=== PATIENT | male | born 1980 | race Caucasian/White ===

== ENCOUNTER 2023-09-11 02:21 | Inpatient (IN) | payer OTHER, SELFPAY ==
--- NOTE | 2023-09-11 | ECG_ITS ---
Test Reason : CHECK FOR PROLONGED QT Blood Pressure : / mmHG Vent. Rate : 063 BPM Atrial Rate : 063 BPM P-R Int : 136 ms QRS Dur : 092 ms QT Int : 412 ms P-R-T Axes : 045 056 067 degrees QTc Int : 421 ms Normal sinus rhythm Normal ECG No previous ECGs available Referred By: Chester Mccallum Electronically Signed By:Raudel Taylor
[2023-09-11 02:33] VITALS: BP 161/113; PULSE 126; RESP 18; TEMP 36.2; O2SAT 98; BMI 20.7
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
[2023-09-11 04:06] LABS: Appearance Urine Clear; Color Urine Dark Yellow; Glucose Urine UA Negative (Negative); Leukocyte Esterase Urine Negative (Negative); Nitrite Urine Negative (Negative); PH 5.5 (5.0-9.0); Specific Gravity - Urine >= 1.030 (1.005-1.025); UMIC TRIGGER UACC YES; Urine Blood Negative (Negative); Urine Ketones Trace mg/dL (Negative); Urine Protein 30 (1+) mg/dL (Neg-Trace)
[2023-09-11 04:11] LABS: Bacteria Urine None Seen (None Seen); Hyaline Casts Urine 0-2 /LPF (0-2); RBC Urine 0-2 /HPF (0-2); Squamous Epithelial Cell Urine 0-2 /HPF (0-2); WBC Urine 0-5 /HPF (0-5)
[2023-09-11 04:20] LABS: Amphetamine Screen Urine Not Detected (Not Detect); Barbiturates, Urine Not Detected (Not Detect); Benzodiazepines Screen Urine Not Detected (Not Detect); Buprenorphine Scr Positive (Not Detect); Cannabinoid Screen Urine Not Detected (Not Detect); Cocaine Screen Urine POSITIVE (Not Detect); Fentanyl, urine POSITIVE (Not Detect); Methadone Screen, Urine Not Detected (Not Detect); Opiate Screen Urine POSITIVE (Not Detect); Oxycodone Screen Urine Not Detected (Not Detect); Phencyclidine Screen Urine Not Detected (Not Detect)
[2023-09-11 04:26] LABS: Alanine Aminotransferase 14 U/L (0-40); Albumin Level 4.1 g/dL (3.5-5.0); Alkaline Phosphatase 70 U/L (39-117); Anion Gap 15 (12-20); Aspartate Amino Transferase 20 U/L (5-37); Bilirubin Total 0.6 mg/dL (0.0-1.0); Blood Urea Nitrogen 12 mg/dL (9-16); Calcium 9.7 mg/dL (8.4-10.2); Carbon Dioxide 24 mmol/L (22-29); Chloride 108 mmol/L (96-108); Creatinine Clr Calc Pharmacy 71.8; Estimated Glomerular Filt Rate > 60; Ethanol < 10 mg/dL; Glucose Random 166 mg/dL (60-115); Potassium 4.6 mmol/L (3.3-5.1); Sodium 142 mmol/L (135-145); Total Protein 8.2 g/dL (6.5-8.0)
--- NOTE | 2023-09-11 07:06 | PC.NURSE ---
Assumed care of patient at 0645. Patient is observed resting in their bed. No signs of distress observed. Will continue plan of care.
[2023-09-11 07:48] LABS: MANUAL DIFF FLAG NO
[2023-09-11 08:13] LABS: Basophils Percent Auto 0.4 % (0-2); Eosinophils Absolute Auto 0.1 X10*3/uL (0.0-0.4); Eosinophils Percent Auto 1.2 % (0-4); Hematocrit 37.2 % (42.0-52.0); Hemoglobin 12.8 g/dl (14.0-18.0); Imm Gran Abs Auto 0.05 X10*3/uL (0.00-0.03); Imm Gran Pct Auto 0.4 % (0.0-0.4); Lymphocytes Absolute Auto 2.5 X10*3/uL (1.2-4.9); Lymphocytes Percent Auto 21.9 % (20-40); Mean Corpuscular HGB Conc 34.4 g/dl (31.0-36.0); Mean Corpuscular Hemoglobin 29.1 pg (27.0-33.0); Mean Corpuscular Volume 84.5 fL (80.0-98.0); Mean Platelet Volume 11.3 fL (9.4-12.4); Monocytes Absolute Auto 0.8 X10*3/uL (0.1-1.2); Monocytes Percent Auto 6.9 % (2-11); Neutrophils Absolute Auto 7.9 x10*3/uL (2.0-8.3); Neutrophils Percent Auto 69.2 % (45-73); Platelet Count 182 X10*3/uL (160-400); Red Cell Distribution Width 13.7 % (11.0-16.0); White Blood Count 11.4 X10*3/uL (4.8-10.8)
[2023-09-11 11:36] VITALS: BP 116/72; PULSE 66; RESP 14; TEMP 36.4; O2SAT 97
[2023-09-12 03:34] VITALS: BP 136/87; PULSE 61; RESP 17; TEMP 36.4; O2SAT 97
--- NOTE | 2023-09-12 05:55 | PC.NURSE ---
Patient slept through the night, no distress observed/reported, no behavior issues, VSS, med rec completed/pending provider's approval, patient was assessed by care team with disposition section 12 inpatient bed search, will continue to monitor
--- NOTE | 2023-09-12 06:58 | PC.NURSE ---
Assumed care of patient at 0645. Patient is observed resting in their bed. No signs of distress observed. Will continue plan of care.
[2023-09-12] MEDS: Sertraline HCL 50 MG TABLET PO (09:54)
[2023-09-12] MEDS: Sertraline HCL 100 MG TABLET PO (09:55)
[2023-09-12] MEDS: QUEtiapine Fumarate 50 MG TABLET PO (10:10)
--- NOTE | 2023-09-12 14:02 | PHA.MEDREC ---
Pharmacy Consult ? Medication Reconciliation Pharmacy has completed the medication reconciliation. Nurse had confirmed it before-hand. Pharmacy went through pharmacy claims and everything matched and looked good from nurses list and PH claims.
[2023-09-12 14:35] VITALS: BP 126/89; PULSE 78; RESP 14; TEMP 37.1; O2SAT 96
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
[2023-09-12 20:00] VITALS: BP 132/88; PULSE 86; RESP 16; TEMP 37.4; O2SAT 99
[2023-09-12] MEDS: Prazosin HCL 1 MG CAPSULE 3 MG PO (20:26)
[2023-09-12] MEDS: hydrOXYzine HCL 50 MG TABLET PO (20:26)
[2023-09-12] MEDS: traZODone HCL 50 MG TABLET 150 MG PO (20:27)
[2023-09-12] MEDS: QUEtiapine Fumarate 300 MG TABLET PO (20:27)
[2023-09-13] VITALS (7 sets, daily range): BP systolic 120–168; BP diastolic 86–89; PULSE 72–101; RESP 16; TEMP 36.6–37.3; O2SAT 96
[2023-09-13] MEDS: Sertraline HCL 100 MG TABLET PO (08:54)
[2023-09-13] MEDS: Sertraline HCL 50 MG TABLET PO (08:54)
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
[2023-09-13] MEDS: Ibuprofen 800 MG TABLET PO (15:29)
[2023-09-13] MEDS: Dicyclomine HCl 10 MG CAPSULE PO (15:29)
[2023-09-13] MEDS: hydrOXYzine HCL 50 MG TABLET PO (15:29)
[2023-09-13] MEDS: cloNIDine HCL 0.1 MG TABLET PO ×2 (15:29→20:19)
[2023-09-13] MEDS: Buprenorphine HCL 8 MG TAB.SUBL SUBLINGUAL (15:30)
[2023-09-13] MEDS: QUEtiapine Fumarate 300 MG TABLET PO (20:18)
[2023-09-13] MEDS: Prazosin HCL 1 MG CAPSULE 3 MG PO (20:18)
[2023-09-13] MEDS: traZODone HCL 50 MG TABLET 150 MG PO (20:19)
[2023-09-14 08:00] VITALS: BP 139/81; PULSE 85; RESP 14; TEMP 36.7; O2SAT 95
[2023-09-14] MEDS: Sertraline HCL 100 MG TABLET PO (08:46)
[2023-09-14] MEDS: Sertraline HCL 50 MG TABLET PO (08:46)
--- NOTE | 2023-09-14 13:36 | P.PNPSI_ITS ---
Subjective Subjective Date of Service: 09/14/23 Reason For Visit: SI Interim History: in bed, minimally interactive. reports feeling better from bupe, wants it to be scheduled, agrees to schedule 8 BID for now. no other requests or complaints, declines further interview. per staff, ambivalent re his safety. taking comfort PRNs. dep 9 anx 6. slept 8 hours. got 8 mg bupe yesterday to good effect. COWS O/N was 1. Mental Status Exam Mental Status Exam Narrative: lying in bed, covered in blanket for the most part. minimally cooperative, saying he did not want to have interview as he was feeling unwell. did discuss mgmt of his opioid withdrawal. no PMA/PMR. speech decreased in rate, loudness, tone, amount. incr latency. thoughts linear and logical. affect constricted, normo-intense, non-labile. mood unknown. no SI/SIBI/HI/AVH expressed, but did express SI to staff services manager. Diagnostics Vital Signs (24Hr): Vital Signs - 24 hr 09/13/23 15:29 09/13/23 20:00 09/13/23 20:10 Temperature 98 F 98.0 F Pulse Rate 72 72 Respiratory Rate 16 16 Blood Pressure 168/89 H 120/86 120/86 Pulse Oximetry 96 96 Oxygen Delivery Method Room Air Room Air 09/13/23 20:18 09/13/23 20:19 Temperature Pulse Rate Respiratory Rate Blood Pressure 120/86 120/86 Pulse Oximetry Oxygen Delivery Method BMI result Body Mass Index 20.7 Labs 09/11/23 08:04 09/11/23 03:58 Medications Medications Current Medications Acetaminophen (Acetaminophen 325 Mg Tablet) 650 mg PO Q6H PRN PRN Reason: Headache/Pain Mild Scale (1-3) Al Hydroxide/Mg Hydroxide (Magnesium Hydrox/Alum Hydrox 30 Ml Oral.Susp) 30 ml PO Q6H PRN PRN Reason: Heartburn/Nausea Buprenorphine HCl (Buprenorphine Hcl 8 Mg Tab.Subl) 8 mg SUBLINGUAL BID VI Clonidine HCl (Clonidine Hcl 0.1 Mg Tablet) 0.1 mg PO Q4H PRN; Protocol PRN Reason: signs of opioid withdrawal Last Admin: 09/13/23 20:19 Dose: 0.1 mg Dicyclomine HCl (Dicyclomine Hcl 10 Mg Capsule) 10 mg PO QIDACHS PRN PRN Reason: stomach spasm Last Admin: 09/13/23 15:29 Dose: 10 mg Hydroxyzine HCl (Hydroxyzine Hcl 50 Mg Tablet) 50 mg PO BID PRN PRN Reason: anxiety Last Admin: 09/13/23 15:29 Dose: 50 mg Ibuprofen (Ibuprofen 800 Mg Tablet) 800 mg PO Q8H PRN PRN Reason: aches Last Admin: 09/13/23 15:29 Dose: 800 mg Loperamide HCl (Loperamide Hcl 2 Mg Capsule) 2 mg PO Q6H PRN PRN Reason: diarrhea Magnesium Hydroxide (Milk Of Magnesia 30 Ml Oral.Susp) 30 ml PO DAILY PRN PRN Reason: Constipation Nicotine Polacrilex (Nicotine Polacrilex 2 Mg Gum) 4 mg BUCCAL Q2H PRN PRN Reason: Nicotine Cravings Ondansetron HCl (Ondansetron Odt 8 Mg Tab.Rapdis) 8 mg TRANSLINGU Q8H PRN PRN Reason: nausea or vomiting Prazosin HCl (Prazosin Hcl 1 Mg Capsule) 3 mg PO BEDTIME VI; Protocol Last Admin: 09/13/23 20:18 Dose: 3 mg Quetiapine Fumarate (Quetiapine Fumarate 300 Mg Tablet) 300 mg PO BEDTIME VI Last Admin: 09/13/23 20:18 Dose: 300 mg Sertraline HCl (Sertraline Hcl 50 Mg Tablet) 50 mg PO DAILY VI Last Admin: 09/14/23 08:46 Dose: 50 mg Sertraline HCl (Sertraline Hcl 100 Mg Tablet) 100 mg PO DAILY VI Last Admin: 09/14/23 08:46 Dose: 100 mg Trazodone HCl (Trazodone Hcl 50 Mg Tablet) 150 mg PO BEDTIME VI Last Admin: 09/13/23 20:19 Dose: 150 mg Allergies Allergies Allergy/AdvReac Type Severity Reaction Status Date / Time naloxone Allergy Anaphylaxis Verified 09/11/23 02:34 Assessment & Plan Assessment & Plan (1) Polysubstance abuse: Status: Acute Code(s): F19.10 - Other psychoactive substance abuse, uncomplicated (2) Suicidal ideation: Status: Acute Code(s): R45.851 - Suicidal ideations Plan 09/12: comfort meds for opioid detox. bupe 8 mg BID PRN COWS 7 or greater. supportive care for cocaine withdrawal. Q5 min checks due to statements of SI/HI. 6/21: dismissive. provocative statements about his safety. agrees to bupe 8 BID. DC COWS and PRN bupe. otherwise continue current mgmt. Reason for continued inpatient stay Substantial Risk for: rapid decompensation Time Spent With Patient Time: Total time managing care of this patient today ____ minutes.
[2023-09-14] MEDS: Buprenorphine HCL 8 MG TAB.SUBL SUBLINGUAL ×2 (14:05→22:32)
[2023-09-14 22:15] VITALS: BP 134/97; PULSE 74; RESP 16; TEMP 37.9; O2SAT 96
[2023-09-14] MEDS: traZODone HCL 50 MG TABLET 150 MG PO (22:30)
[2023-09-14] MEDS: Prazosin HCL 1 MG CAPSULE 3 MG PO (22:31)
[2023-09-14] MEDS: QUEtiapine Fumarate 300 MG TABLET PO (22:32)
[2023-09-15 08:00] VITALS: BP 129/86; PULSE 93; RESP 14; TEMP 36.3; O2SAT 95
--- NOTE | 2023-09-15 08:34 | P.PNPSI_ITS ---
Subjective Subjective Date of Service: 09/15/23 Reason For Visit: SI Subjective Notes: Conditional Voluntary Interim History: 42 yo with slight fever today and not feeling well - non specific- Happy with effect of bup - and being on medications to help dep/anxiety- which are still high co of ongoing si (not on unit) but thoughts- about when he leaves and auditory hallucinations of bad things happening sees shadows- denies hx of trauma- Nursing reports isolated to room taking meds- Medication Compliance: Yes Side effects from medications: No Attending Groups: No Review of Systems Acute medical concerns: Yes slight fever will get resp panel Review of Systems: no specific bodily complaints Mental Status Exam Mental Status Exam Narrative: lying in bed wrapped in blanket Patient Appearance: Fatigued Patient Orientation: Person, Place, Time and Situation Level of Consciousness: Awake Patient Behavior: Guarded, Passive, Resistive to Care and Poor Eye Contact Mood Description: Calm and Apathetic Affect Description: Blunted Patient Cognition Impaired: No Ability to Follow Directions: Fair Speech Pattern: Mumbled Perceptual Disturbances: Hallucinations Thought Process: Intact Thought Content: positive for Goal Oriented Depressive Symptoms: Increased Anxiety, Changes in Appetite, Unhappiness and Thoughts of /Suicide Abnormal Motor Activity Signs and Symptoms: Psychomotor Retardation Judgement: Fair Diagnostics Vital Signs (24Hr): Vital Signs - 24 hr 09/14/23 22:15 09/15/23 08:00 Temperature 100.3 F 97.3 F Pulse Rate 74 93 Respiratory Rate 16 14 Blood Pressure 134/97 H 129/86 Pulse Oximetry 96 95 Oxygen Delivery Method Room Air Room Air BMI result Body Mass Index 20.7 Labs 09/11/23 08:04 09/11/23 03:58 Medications Medications Current Medications Acetaminophen (Acetaminophen 325 Mg Tablet) 650 mg PO Q6H PRN PRN Reason: Headache/Pain Mild Scale (1-3) Al Hydroxide/Mg Hydroxide (Magnesium Hydrox/Alum Hydrox 30 Ml Oral.Susp) 30 ml PO Q6H PRN PRN Reason: Heartburn/Nausea Buprenorphine HCl (Buprenorphine Hcl 8 Mg Tab.Subl) 8 mg SUBLINGUAL BID VI Last Admin: 09/14/23 22:32 Dose: 8 mg Clonidine HCl (Clonidine Hcl 0.1 Mg Tablet) 0.1 mg PO Q4H PRN; Protocol PRN Reason: signs of opioid withdrawal Last Admin: 09/13/23 20:19 Dose: 0.1 mg Dicyclomine HCl (Dicyclomine Hcl 10 Mg Capsule) 10 mg PO QIDACHS PRN PRN Reason: stomach spasm Last Admin: 09/13/23 15:29 Dose: 10 mg Hydroxyzine HCl (Hydroxyzine Hcl 50 Mg Tablet) 50 mg PO BID PRN PRN Reason: anxiety Last Admin: 09/13/23 15:29 Dose: 50 mg Ibuprofen (Ibuprofen 800 Mg Tablet) 800 mg PO Q8H PRN PRN Reason: aches Last Admin: 09/13/23 15:29 Dose: 800 mg Loperamide HCl (Loperamide Hcl 2 Mg Capsule) 2 mg PO Q6H PRN PRN Reason: diarrhea Magnesium Hydroxide (Milk Of Magnesia 30 Ml Oral.Susp) 30 ml PO DAILY PRN PRN Reason: Constipation Nicotine Polacrilex (Nicotine Polacrilex 2 Mg Gum) 4 mg BUCCAL Q2H PRN PRN Reason: Nicotine Cravings Ondansetron HCl (Ondansetron Odt 8 Mg Tab.Rapdis) 8 mg TRANSLINGU Q8H PRN PRN Reason: nausea or vomiting Prazosin HCl (Prazosin Hcl 1 Mg Capsule) 3 mg PO BEDTIME VI; Protocol Last Admin: 09/14/23 22:31 Dose: 3 mg Quetiapine Fumarate (Quetiapine Fumarate 300 Mg Tablet) 300 mg PO BEDTIME VI Last Admin: 09/14/23 22:32 Dose: 300 mg Sertraline HCl (Sertraline Hcl 50 Mg Tablet) 50 mg PO DAILY [facility] Last Admin: 09/14/23 08:46 Dose: 50 mg Sertraline HCl (Sertraline Hcl 100 Mg Tablet) 100 mg PO DAILY [facility] Last Admin: 09/14/23 08:46 Dose: 100 mg Trazodone HCl (Trazodone Hcl 50 Mg Tablet) 150 mg PO BEDTIME VI Last Admin: 09/14/23 22:30 Dose: 150 mg Allergies Allergies Allergy/AdvReac Type Severity Reaction Status Date / Time naloxone Allergy Anaphylaxis Verified 09/11/23 02:34 Assessment & Plan Assessment & Plan (1) Polysubstance abuse: Status: Acute Code(s): F19.10 - Other psychoactive substance abuse, uncomplicated (2) Suicidal ideation: Status: Acute Code(s): R45.851 - Suicidal ideations Plan 09/12: comfort meds for opioid detox. bupe 8 mg BID PRN COWS 7 or greater. supportive care for cocaine withdrawal. Q5 min checks due to statements of SI/HI. 09/13: dismissive. provocative statements about his safety. agrees to bupe 8 BID. DC COWS and PRN bupe. otherwise continue current mgmt. 09/14/-dep/anxious with si and ah, better with opiate withdrawl on sub-CTP Patient educated on: medication risk/benefits and medical condition Informed Consent: understands Reason for continued inpatient stay Substantial Risk for: harm to self and rapid decompensation Time Spent With Patient Time: Total time managing care of this patient today ____ minutes.
[2023-09-15] MEDS: Sertraline HCL 100 MG TABLET PO (08:57)
[2023-09-15] MEDS: Sertraline HCL 50 MG TABLET PO (08:57)
[2023-09-15] MEDS: Buprenorphine HCL 8 MG TAB.SUBL SUBLINGUAL ×2 (08:57→21:17)
[2023-09-15 20:15] VITALS: BP 120/77; PULSE 75; RESP 16; TEMP 36.4; O2SAT 97
[2023-09-15] MEDS: QUEtiapine Fumarate 300 MG TABLET PO (21:17)
[2023-09-15] MEDS: traZODone HCL 50 MG TABLET 150 MG PO (21:17)
[2023-09-15 21:21] VITALS: BP 120/77
[2023-09-15] MEDS: Prazosin HCL 1 MG CAPSULE 3 MG PO (21:21)
[2023-09-16 07:17] LABS: Adenovirus PCR Not Detected (Not Detect.); Bordetella parapertussis PCR Not Detected (Not Detect.); Bordetella pertussis PCR Not Detected (Not Detect.); Chlamydia pneumoniae PCR Not Detected (Not Detect.); Coronavirus 229E PCR Not Detected (Not Detect.); Coronavirus HKU1 PCR Not Detected (Not Detect.); Coronavirus NL63 PCR Not Detected (Not Detect.); Coronavirus OC43 PCR Not Detected (Not Detect.); Human metapneumovirus PCR Not Detected (Not Detect.); Influenza A PCR Not Detected (Not Detect.); Influenza B PCR Not Detected (Not Detect.); Mycoplasma pneumoniae PCR Not Detected (Not Detect.); Parainfluenza 1 PCR Not Detected (Not Detect.); Parainfluenza 2 PCR Not Detected (Not Detect.); Parainfluenza 3 PCR Not Detected (Not Detect.); Parainfluenza 4 PCR Not Detected (Not Detect.); RSV PCR Not Detected (Not Detect.); Rhino/Enterovirus PCR Not Detected (Not Detect.); SARS-CoV-2 PCR Not Detected (Not Detect.)
[2023-09-16 08:00] VITALS: BP 112/78; PULSE 82; TEMP 36.8; O2SAT 94
[2023-09-16] MEDS: Sertraline HCL 50 MG TABLET PO (10:02)
[2023-09-16] MEDS: Sertraline HCL 100 MG TABLET PO (10:02)
[2023-09-16] MEDS: Buprenorphine HCL 8 MG TAB.SUBL SUBLINGUAL ×2 (10:04→20:37)
--- NOTE | 2023-09-16 12:06 | HO.PSYCHPN ---
Subjective Subjective Date of Service: 09/16/23 Reason For Visit: SI Subjective Notes: Conditional Voluntary Interim History: 42 yo male not eating, lying in bed, very depressed, si no current plan here in hospital - very worried about him- AH of his own thoughts telling him to kill himself- on antidep 150 sertraline and seroquel 300mg will push sertraline - but may need change meds or ECT ? add on lithium denies stimulant/cocaine abuse prior to admit. Had been off psych meds but hadn't been not eating prior to admit. Medication Compliance: Yes Side effects from medications: No Attending Groups: No Review of Systems Acute medical concerns: No Medical Review of Systems: unchanged Review of Systems: not pooping but not eating either, is taking fluids and is verbal not catatonic Mental Status Exam Mental Status Exam Narrative: lying in bed Patient Appearance: Appropriate Patient Orientation: Person, Place, Time and Situation Level of Consciousness: Awake Patient Behavior: Cooperative and Passive Mood Description: Blunted and Sad Affect Description: Constricted Patient Cognition Impaired: No Ability to Follow Directions: Fair Hallucinations: Auditory (of self harm) Thought Process: Intact Thought Content: positive for Goal Oriented and positive for Poverty of Content Depressive Symptoms: Muscle Tension, Changes in Appetite, Hopelessness and Loss of Energy Abnormal Motor Activity Signs and Symptoms: Psychomotor Retardation Judgement: Fair Diagnostics Vital Signs (24Hr): Vital Signs - 24 hr 09/15/23 20:15 09/15/23 21:21 Temperature 97.5 F Pulse Rate 75 Respiratory Rate 16 Blood Pressure 120/77 120/77 Pulse Oximetry 97 Oxygen Delivery Method Room Air BMI result Body Mass Index 20.7 Labs 09/11/23 08:04 09/11/23 03:58 Labs: Laboratory Results - last 48 hr 09/15/23 14:37 Respiratory Panel Ryan See Note Adenovirus (Rapid PCR) Not Detected B.pert (TEM-PCR) Not Detected B.parapertussis DNA PCR Not Detected C. pneumoniae DNA (PCR) Not Detected Coronavirus OC43 (PCR) Not Detected Coronavirus HKU1 (PCR) Not Detected Coronavirus 229E (PCR) Not Detected Coronavirus NL63 (PCR) Not Detected Human Metapneumovir PCR Not Detected Influenza A (RT-PCR) Not Detected Influenza B (RT-PCR) Not Detected M. pneumoniae (PCR) Not Detected Parainfluenza 1 (PCR) Not Detected Parainfluenza 2 (PCR) Not Detected Parainfluenza 3 (PCR) Not Detected Parainfluenza 4 (PCR) Not Detected RSV (PCR) Not Detected Entero/Rhino (PCR) Not Detected SARS-CoV-2 RNA (RT-PCR) Not Detected Medications Medications Current Medications Acetaminophen (Acetaminophen 325 Mg Tablet) 650 mg PO Q6H PRN PRN Reason: Headache/Pain Mild Scale (1-3) Al Hydroxide/Mg Hydroxide (Magnesium Hydrox/Alum Hydrox 30 Ml Oral.Susp) 30 ml PO Q6H PRN PRN Reason: Heartburn/Nausea Buprenorphine HCl (Buprenorphine Hcl 8 Mg Tab.Subl) 8 mg SUBLINGUAL BID VI Last Admin: 09/16/23 10:04 Dose: 8 mg Clonidine HCl (Clonidine Hcl 0.1 Mg Tablet) 0.1 mg PO Q4H PRN; Protocol PRN Reason: signs of opioid withdrawal Last Admin: 09/13/23 20:19 Dose: 0.1 mg Dicyclomine HCl (Dicyclomine Hcl 10 Mg Capsule) 10 mg PO QIDACHS PRN PRN Reason: stomach spasm Last Admin: 09/13/23 15:29 Dose: 10 mg Hydroxyzine HCl (Hydroxyzine Hcl 50 Mg Tablet) 50 mg PO BID PRN PRN Reason: anxiety Last Admin: 09/13/23 15:29 Dose: 50 mg Ibuprofen (Ibuprofen 800 Mg Tablet) 800 mg PO Q8H PRN PRN Reason: aches Last Admin: 09/13/23 15:29 Dose: 800 mg Loperamide HCl (Loperamide Hcl 2 Mg Capsule) 2 mg PO Q6H PRN PRN Reason: diarrhea Magnesium Hydroxide (Milk Of Magnesia 30 Ml Oral.Susp) 30 ml PO DAILY PRN PRN Reason: Constipation Nicotine Polacrilex (Nicotine Polacrilex 2 Mg Gum) 4 mg BUCCAL Q2H PRN PRN Reason: Nicotine Cravings Ondansetron HCl (Ondansetron Odt 8 Mg Tab.Rapdis) 8 mg TRANSLINGU Q8H PRN PRN Reason: nausea or vomiting Prazosin HCl (Prazosin Hcl 1 Mg Capsule) 3 mg PO BEDTIME VI; Protocol Last Admin: 09/15/23 21:21 Dose: 3 mg Quetiapine Fumarate (Quetiapine Fumarate 300 Mg Tablet) 300 mg PO BEDTIME VI Last Admin: 09/15/23 21:17 Dose: 300 mg Quetiapine Fumarate (Quetiapine Fumarate 50 Mg Tablet) 50 mg PO TID PRN PRN Reason: psychosis Sertraline HCl (Sertraline Hcl 50 Mg Tablet) 50 mg PO DAILY [facility] Last Admin: 09/16/23 10:02 Dose: 50 mg Sertraline HCl (Sertraline Hcl 100 Mg Tablet) 100 mg PO DAILY [facility] Last Admin: 09/16/23 10:02 Dose: 100 mg Trazodone HCl (Trazodone Hcl 50 Mg Tablet) 150 mg PO BEDTIME [facility] Last Admin: 09/15/23 21:17 Dose: 150 mg Allergies Allergies Allergy/AdvReac Type Severity Reaction Status Date / Time naloxone Allergy Anaphylaxis Verified 09/11/23 02:34 Assessment & Plan Assessment & Plan (1) Polysubstance abuse: Status: Acute Code(s): F19.10 - Other psychoactive substance abuse, uncomplicated Assessment and Plan: though he told me was not using stimlants apparently was doing opiates/fentanyl and COCAINE prior to admission (2) Suicidal ideation: Status: Acute Code(s): R45.851 - Suicidal ideations Assessment and Plan: 09/15 ah to hurt self - no current plan to act on these Plan 09/12: comfort meds for opioid detox. bupe 8 mg BID PRN COWS 7 or greater. supportive care for cocaine withdrawal. Q5 min checks due to statements of SI/HI. 09/13: dismissive. provocative statements about his safety. agrees to bupe 8 BID. DC COWS and PRN bupe. otherwise continue current mgmt. 09/14/dep/anxious with si and ah, better with opiate withdrawl on sub-CTP 09/15 concerning clarisse not improving since admission ? worse, inc sertraline, consider lithium, or ECT Patient educated on: medication risk/benefits, substance abuse and ECT Informed Consent: further education needed Reason for continued inpatient stay Substantial Risk for: harm to self and rapid decompensation Time Spent With Patient Time: Total time managing care of this patient today ____ minutes.
[2023-09-16 20:00] VITALS: BP 118/76; PULSE 78; RESP 18; TEMP 36.7; O2SAT 98
[2023-09-16] MEDS: Prazosin HCL 1 MG CAPSULE 3 MG PO (20:37)
[2023-09-16] MEDS: QUEtiapine Fumarate 300 MG TABLET PO (20:37)
[2023-09-17 08:00] VITALS: BP 110/74; PULSE 78; RESP 14; TEMP 36.6; O2SAT 93
[2023-09-17] MEDS: Sertraline HCL 100 MG TABLET 200 MG PO (08:48)
[2023-09-17] MEDS: Buprenorphine HCL 8 MG TAB.SUBL SUBLINGUAL ×2 (08:48→20:50)
--- NOTE | 2023-09-17 16:01 | P.PNPSI_ITS ---
Subjective Subjective Date of Service: 09/17/23 Reason For Visit: SI Subjective Notes: Conditional Voluntary Interim History: Reviewed with Dr. Daniel. Keeping to self. Pt reports feeling better ; pt stated, I'm not having much anxiety or depression anymore. I am going to try to call my family in [place] to see if I can stay with them . Pt denies SI/HI/VH/AH. Medication Compliance: Yes Side effects from medications: No Attending Groups: No Review of Systems Constitutional: Reports as per HPI Eyes: Reports as per HPI Reports as per HPI Cardiovascular: Reports as per HPI Respiratory: Reports as per HPI Gastrointestinal: Reports as per HPI Genitourinary: Reports as per HPI Musculoskeletal: Reports as per HPI Skin/Breast: Reports as per HPI Reports as per HPI Psychiatric: Reports as per HPI Endocrine: Reports as per HPI Hematologic/Lymphatic: Reports as per HPI Allergic/Immunologic: Reports as per HPI Mental Status Exam Mental Status Exam Narrative: Pt is alert and oriented; behavior is cooperative and calm; dressed in hospital attire; mood is described as better ; eye contact appropriate; Speech is normal rate, volume and not pressured; thought process is organized and goal directed; Thought content is on tx; denies SI/HI/VH/AH Diagnostics Vital Signs (24Hr): Vital Signs - 24 hr 09/16/23 20:00 09/17/23 08:00 Temperature 98.0 F 97.8 F Pulse Rate 78 78 Respiratory Rate 18 14 Blood Pressure 118/76 110/74 Pulse Oximetry 98 93 Oxygen Delivery Method Room Air Room Air BMI result Body Mass Index 20.7 Labs 09/11/23 08:04 09/11/23 03:58 Labs: Laboratory Results - last 48 hr 09/15/23 14:37 Respiratory Panel Ryan See Note Adenovirus (Rapid PCR) Not Detected B.pert (TEM-PCR) Not Detected B.parapertussis DNA PCR Not Detected C. pneumoniae DNA (PCR) Not Detected Coronavirus OC43 (PCR) Not Detected Coronavirus HKU1 (PCR) Not Detected Coronavirus 229E (PCR) Not Detected Coronavirus NL63 (PCR) Not Detected Human Metapneumovir PCR Not Detected Influenza A (RT-PCR) Not Detected Influenza B (RT-PCR) Not Detected M. pneumoniae (PCR) Not Detected Parainfluenza 1 (PCR) Not Detected Parainfluenza 2 (PCR) Not Detected Parainfluenza 3 (PCR) Not Detected Parainfluenza 4 (PCR) Not Detected RSV (PCR) Not Detected Entero/Rhino (PCR) Not Detected SARS-CoV-2 RNA (RT-PCR) Not Detected Medications Medications Current Medications Acetaminophen (Acetaminophen 325 Mg Tablet) 650 mg PO Q6H PRN PRN Reason: Headache/Pain Mild Scale (1-3) Al Hydroxide/Mg Hydroxide (Magnesium Hydrox/Alum Hydrox 30 Ml Oral.Susp) 30 ml PO Q6H PRN PRN Reason: Heartburn/Nausea Buprenorphine HCl (Buprenorphine Hcl 8 Mg Tab.Subl) 8 mg SUBLINGUAL BID VI Last Admin: 09/17/23 08:48 Dose: 8 mg Clonidine HCl (Clonidine Hcl 0.1 Mg Tablet) 0.1 mg PO Q4H PRN; Protocol PRN Reason: signs of opioid withdrawal Last Admin: 09/13/23 20:19 Dose: 0.1 mg Dicyclomine HCl (Dicyclomine Hcl 10 Mg Capsule) 10 mg PO QIDACHS PRN PRN Reason: stomach spasm Last Admin: 09/13/23 15:29 Dose: 10 mg Hydroxyzine HCl (Hydroxyzine Hcl 50 Mg Tablet) 50 mg PO BID PRN PRN Reason: anxiety Last Admin: 09/13/23 15:29 Dose: 50 mg Ibuprofen (Ibuprofen 800 Mg Tablet) 800 mg PO Q8H PRN PRN Reason: aches Last Admin: 09/13/23 15:29 Dose: 800 mg Loperamide HCl (Loperamide Hcl 2 Mg Capsule) 2 mg PO Q6H PRN PRN Reason: diarrhea Magnesium Hydroxide (Milk Of Magnesia 30 Ml Oral.Susp) 30 ml PO DAILY PRN PRN Reason: Constipation Nicotine Polacrilex (Nicotine Polacrilex 2 Mg Gum) 4 mg BUCCAL Q2H PRN PRN Reason: Nicotine Cravings Ondansetron HCl (Ondansetron Odt 8 Mg Tab.Rapdis) 8 mg TRANSLINGU Q8H PRN PRN Reason: nausea or vomiting Prazosin HCl (Prazosin Hcl 1 Mg Capsule) 3 mg PO BEDTIME VI; Protocol Last Admin: 09/16/23 20:37 Dose: 3 mg Quetiapine Fumarate (Quetiapine Fumarate 300 Mg Tablet) 300 mg PO BEDTIME VI Last Admin: 09/16/23 20:37 Dose: 300 mg Quetiapine Fumarate (Quetiapine Fumarate 50 Mg Tablet) 50 mg PO TID PRN PRN Reason: psychosis Sertraline HCl (Sertraline Hcl 100 Mg Tablet) 200 mg PO DAILY VI Last Admin: 09/17/23 08:48 Dose: 200 mg Allergies Allergies Allergy/AdvReac Type Severity Reaction Status Date / Time naloxone Allergy Anaphylaxis Verified 09/11/23 02:34 Assessment & Plan Assessment & Plan (1) Polysubstance abuse: Status: Acute Code(s): F19.10 - Other psychoactive substance abuse, uncomplicated Assessment and Plan: though he told me was not using stimlants apparently was doing opiates/fentanyl and COCAINE prior to admission (2) Suicidal ideation: Status: Acute Code(s): R45.851 - Suicidal ideations Assessment and Plan: 09/15 ah to hurt self - no current plan to act on these Plan 09/12: comfort meds for opioid detox. bupe 8 mg BID PRN COWS 7 or greater. supportive care for cocaine withdrawal. Q5 min checks due to statements of SI/HI. 09/13: dismissive. provocative statements about his safety. agrees to bupe 8 BID. DC COWS and PRN bupe. otherwise continue current mgmt. 09/14/-dep/anxious with si and ah, better with opiate withdrawl on sub-CTP 09/15 concerning clarisse not improving since admission ? worse, inc sertraline, consider lithium, or ECT 06:24: Keeping to self. Pt reports feeling better ; pt stated, I'm not having much anxiety or depression anymore. I am going to try to call my family in [place] to see if I can stay with them . Pt denies SI/HI/VH/AH Patient educated on: diagnosis and medication risk/benefits Informed Consent: understands Reason for continued inpatient stay Substantial Risk for: med/psych decompensation Time Spent With Patient Time: Total time managing care of this patient today _20___ minutes.
[2023-09-17 20:30] VITALS: BP 108/76; PULSE 78; RESP 16; TEMP 36.6; O2SAT 96
[2023-09-17 20:50] VITALS: BP 108/76
[2023-09-17] MEDS: Prazosin HCL 1 MG CAPSULE 3 MG PO (20:50)
[2023-09-17] MEDS: QUEtiapine Fumarate 300 MG TABLET PO (20:50)
[2023-09-17] MEDS: traZODone HCL 50 MG TABLET 150 MG PO (21:22)
[2023-09-18 07:20] VITALS: BP 103/67; PULSE 72; RESP 18; TEMP 36.6; O2SAT 95
[2023-09-18 07:53] VITALS: BP 103/67; PULSE 72; RESP 18; TEMP 36.6; O2SAT 95
[2023-09-18] MEDS: Sertraline HCL 100 MG TABLET 200 MG PO (08:32)
[2023-09-18] MEDS: Buprenorphine HCL 8 MG TAB.SUBL SUBLINGUAL ×2 (08:32→21:10)
--- NOTE | 2023-09-18 09:00 | HO.PSYCHPN ---
Subjective Subjective Date of Service: 09/18/23 Reason For Visit: SI Subjective Notes: 3 Day Interim History: Reviewed with Dr. Daniel. Pt signed 3 day notice yesterday; it is up on 09/20/23. Pt reports feeling good ; pt stated, I spoke to my family in [place]. They are going to buy me a plane ticket and I'm going to stay with my grandmother. Pt denies SI/HI/VH/AH. Medication Compliance: Yes Side effects from medications: No Review of Systems Constitutional: Reports as per HPI Eyes: Reports as per HPI Reports as per HPI Cardiovascular: Reports as per HPI Respiratory: Reports as per HPI Gastrointestinal: Reports as per HPI Genitourinary: Reports as per HPI Musculoskeletal: Reports as per HPI Skin/Breast: Reports as per HPI Reports as per HPI Psychiatric: Reports as per HPI Endocrine: Reports as per HPI Hematologic/Lymphatic: Reports as per HPI Allergic/Immunologic: Reports as per HPI Mental Status Exam Mental Status Exam Narrative: Pt is alert and oriented; behavior is cooperative and calm; dressed in hospital attire; mood is described as good ; eye contact appropriate; Speech is normal rate, volume and not pressured; thought process is organized and goal directed; Thought content is on tx; denies SI/HI/VH/AH Diagnostics Vital Signs (24Hr): Vital Signs - 24 hr 09/17/23 20:30 09/17/23 20:50 09/18/23 07:20 Temperature 97.8 F 97.8 F Pulse Rate 78 72 Respiratory Rate 16 18 Blood Pressure 108/76 108/76 103/67 Pulse Oximetry 96 95 Oxygen Delivery Method Room Air Room Air 09/18/23 07:53 Temperature 97.8 F Pulse Rate 72 Respiratory Rate 18 Blood Pressure 103/67 Pulse Oximetry 95 Oxygen Delivery Method Room Air BMI result Body Mass Index 20.7 Labs 09/11/23 08:04 09/11/23 03:58 Medications Medications Current Medications Acetaminophen (Acetaminophen 325 Mg Tablet) 650 mg PO Q6H PRN PRN Reason: Headache/Pain Mild Scale (1-3) Al Hydroxide/Mg Hydroxide (Magnesium Hydrox/Alum Hydrox 30 Ml Oral.Susp) 30 ml PO Q6H PRN PRN Reason: Heartburn/Nausea Buprenorphine HCl (Buprenorphine Hcl 8 Mg Tab.Subl) 8 mg SUBLINGUAL BID VI Last Admin: 09/18/23 08:32 Dose: 8 mg Clonidine HCl (Clonidine Hcl 0.1 Mg Tablet) 0.1 mg PO Q4H PRN; Protocol PRN Reason: signs of opioid withdrawal Last Admin: 09/13/23 20:19 Dose: 0.1 mg Dicyclomine HCl (Dicyclomine Hcl 10 Mg Capsule) 10 mg PO QIDACHS PRN PRN Reason: stomach spasm Last Admin: 09/13/23 15:29 Dose: 10 mg Hydroxyzine HCl (Hydroxyzine Hcl 50 Mg Tablet) 50 mg PO BID PRN PRN Reason: anxiety Last Admin: 09/13/23 15:29 Dose: 50 mg Ibuprofen (Ibuprofen 800 Mg Tablet) 800 mg PO Q8H PRN PRN Reason: aches Last Admin: 09/13/23 15:29 Dose: 800 mg Loperamide HCl (Loperamide Hcl 2 Mg Capsule) 2 mg PO Q6H PRN PRN Reason: diarrhea Magnesium Hydroxide (Milk Of Magnesia 30 Ml Oral.Susp) 30 ml PO DAILY PRN PRN Reason: Constipation Nicotine Polacrilex (Nicotine Polacrilex 2 Mg Gum) 4 mg BUCCAL Q2H PRN PRN Reason: Nicotine Cravings Ondansetron HCl (Ondansetron Odt 8 Mg Tab.Rapdis) 8 mg TRANSLINGU Q8H PRN PRN Reason: nausea or vomiting Prazosin HCl (Prazosin Hcl 1 Mg Capsule) 3 mg PO BEDTIME VI; Protocol Last Admin: 09/17/23 20:50 Dose: 3 mg Quetiapine Fumarate (Quetiapine Fumarate 300 Mg Tablet) 300 mg PO BEDTIME VI Last Admin: 09/17/23 20:50 Dose: 300 mg Quetiapine Fumarate (Quetiapine Fumarate 50 Mg Tablet) 50 mg PO TID PRN PRN Reason: psychosis Sertraline HCl (Sertraline Hcl 100 Mg Tablet) 200 mg PO DAILY VI Last Admin: 09/18/23 08:32 Dose: 200 mg Trazodone HCl (Trazodone Hcl 50 Mg Tablet) 150 mg PO BEDTIME VI Last Admin: 09/17/23 21:22 Dose: 150 mg Allergies Allergies Allergy/AdvReac Type Severity Reaction Status Date / Time naloxone Allergy Anaphylaxis Verified 09/11/23 02:34 Assessment & Plan Assessment & Plan (1) Polysubstance abuse: Status: Acute Code(s): F19.10 - Other psychoactive substance abuse, uncomplicated Assessment and Plan: though he told me was not using stimlants apparently was doing opiates/fentanyl and COCAINE prior to admission (2) Suicidal ideation: Status: Acute Code(s): R45.851 - Suicidal ideations Plan 09/12: comfort meds for opioid detox. bupe 8 mg BID PRN COWS 7 or greater. supportive care for cocaine withdrawal. Q5 min checks due to statements of SI/HI. 09/13: dismissive. provocative statements about his safety. agrees to bupe 8 BID. DC COWS and PRN bupe. otherwise continue current mgmt. 09/14/-dep/anxious with si and ah, better with opiate withdrawl on sub-CTP 09/15 concerning clarisse not improving since admission ? worse, inc sertraline, consider lithium, or ECT :: Keeping to self. Pt reports feeling better ; pt stated, I'm not having much anxiety or depression anymore. I am going to try to call my family in [place] to see if I can stay with them . Pt denies SI/HI/VH/AH 09/17: Pt signed 3 day notice yesterday; it is up on 09/20/23. Pt reports feeling good ; pt stated, I spoke to my family in [place]. They are going to buy me a plane ticket and I'm going to stay with my grandmother. Pt denies SI/HI/VH/AH. Continue current tx plan. Patient educated on: diagnosis, medication risk/benefits and therapeutic strategies Informed Consent: understands Reason for continued inpatient stay Substantial Risk for: med/psych decompensation Time Spent With Patient Time: Total time managing care of this patient today _20___ minutes.
[2023-09-18 20:00] VITALS: BP 112/62; PULSE 76; RESP 16; TEMP 36.5; O2SAT 96
[2023-09-18] MEDS: traZODone HCL 50 MG TABLET 150 MG PO (21:09)
[2023-09-18] MEDS: Prazosin HCL 1 MG CAPSULE 3 MG PO (21:09)
[2023-09-18] MEDS: QUEtiapine Fumarate 300 MG TABLET PO (21:09)
[2023-09-19 07:41] VITALS: BP 94/61; PULSE 68; RESP 16; TEMP 36.3; O2SAT 96
[2023-09-19 09:17] VITALS: BP 105/61; PULSE 60; RESP 14; O2SAT 96
[2023-09-19] MEDS: Sertraline HCL 100 MG TABLET 200 MG PO (09:19)
[2023-09-19] MEDS: Buprenorphine HCL 8 MG TAB.SUBL SUBLINGUAL ×2 (09:20→21:26)
--- NOTE | 2023-09-19 09:41 | HO.PSYCHPN ---
Subjective Subjective Date of Service: 09/19/23 Reason For Visit: SI Subjective Notes: 3 Day Interim History: Reviewed with Dr. Daniel. Keeping to self. Pt reports feeling good ; pt stated, I feel ready to go. I'm going to get my stuff from my friends house then meet my cousin to bring me to the airport. I'm going to find a clinic and providers when I get to [place] Pt denies SI/HI/VH/AH. Medication Compliance: Yes Side effects from medications: No Attending Groups: No Review of Systems Constitutional: Reports as per HPI Eyes: Reports as per HPI Reports as per HPI Cardiovascular: Reports as per HPI Respiratory: Reports as per HPI Gastrointestinal: Reports as per HPI Genitourinary: Reports as per HPI Musculoskeletal: Reports as per HPI Skin/Breast: Reports as per HPI Reports as per HPI Psychiatric: Reports as per HPI Endocrine: Reports as per HPI Hematologic/Lymphatic: Reports as per HPI Allergic/Immunologic: Reports as per HPI Mental Status Exam Mental Status Exam Narrative: Pt is alert and oriented; behavior is cooperative and calm; dressed in hospital attire; mood is described as good ; eye contact appropriate; Speech is normal rate, volume and not pressured; thought process is organized and goal directed; Thought content is on tx; denies SI/HI/VH/AH Diagnostics Vital Signs (24Hr): Vital Signs - 24 hr 09/18/23 20:00 09/19/23 07:41 09/19/23 09:17 Temperature 97.7 F 97.4 F Pulse Rate 76 68 60 Respiratory Rate 16 16 14 Blood Pressure 112/62 94/61 105/61 Pulse Oximetry 96 96 96 Oxygen Delivery Method Room Air Room Air Room Air BMI result Body Mass Index 20.7 Labs 09/11/23 08:04 09/11/23 03:58 Medications Medications Current Medications Acetaminophen (Acetaminophen 325 Mg Tablet) 650 mg PO Q6H PRN PRN Reason: Headache/Pain Mild Scale (1-3) Al Hydroxide/Mg Hydroxide (Magnesium Hydrox/Alum Hydrox 30 Ml Oral.Susp) 30 ml PO Q6H PRN PRN Reason: Heartburn/Nausea Buprenorphine HCl (Buprenorphine Hcl 8 Mg Tab.Subl) 8 mg SUBLINGUAL BID VI Last Admin: 09/19/23 09:20 Dose: 8 mg Clonidine HCl (Clonidine Hcl 0.1 Mg Tablet) 0.1 mg PO Q4H PRN; Protocol PRN Reason: signs of opioid withdrawal Last Admin: 09/13/23 20:19 Dose: 0.1 mg Dicyclomine HCl (Dicyclomine Hcl 10 Mg Capsule) 10 mg PO QIDACHS PRN PRN Reason: stomach spasm Last Admin: 09/13/23 15:29 Dose: 10 mg Hydroxyzine HCl (Hydroxyzine Hcl 50 Mg Tablet) 50 mg PO BID PRN PRN Reason: anxiety Last Admin: 09/13/23 15:29 Dose: 50 mg Ibuprofen (Ibuprofen 800 Mg Tablet) 800 mg PO Q8H PRN PRN Reason: aches Last Admin: 09/13/23 15:29 Dose: 800 mg Loperamide HCl (Loperamide Hcl 2 Mg Capsule) 2 mg PO Q6H PRN PRN Reason: diarrhea Magnesium Hydroxide (Milk Of Magnesia 30 Ml Oral.Susp) 30 ml PO DAILY PRN PRN Reason: Constipation Nicotine Polacrilex (Nicotine Polacrilex 2 Mg Gum) 4 mg BUCCAL Q2H PRN PRN Reason: Nicotine Cravings Ondansetron HCl (Ondansetron Odt 8 Mg Tab.Rapdis) 8 mg TRANSLINGU Q8H PRN PRN Reason: nausea or vomiting Prazosin HCl (Prazosin Hcl 1 Mg Capsule) 3 mg PO BEDTIME VI; Protocol Last Admin: 09/18/23 21:09 Dose: 3 mg Quetiapine Fumarate (Quetiapine Fumarate 300 Mg Tablet) 300 mg PO BEDTIME VI Last Admin: 09/18/23 21:09 Dose: 300 mg Quetiapine Fumarate (Quetiapine Fumarate 50 Mg Tablet) 50 mg PO TID PRN PRN Reason: psychosis Sertraline HCl (Sertraline Hcl 100 Mg Tablet) 200 mg PO DAILY VI Last Admin: 09/19/23 09:19 Dose: 200 mg Trazodone HCl (Trazodone Hcl 50 Mg Tablet) 150 mg PO BEDTIME VI Last Admin: 09/18/23 21:09 Dose: 150 mg Allergies Allergies Allergy/AdvReac Type Severity Reaction Status Date / Time naloxone Allergy Anaphylaxis Verified 09/11/23 02:34 Assessment & Plan Assessment & Plan (1) Polysubstance abuse: Status: Acute Code(s): F19.10 - Other psychoactive substance abuse, uncomplicated Assessment and Plan: though he told me was not using stimlants apparently was doing opiates/fentanyl and COCAINE prior to admission (2) Suicidal ideation: Status: Acute Code(s): R45.851 - Suicidal ideations Plan 09/12: comfort meds for opioid detox. bupe 8 mg BID PRN COWS 7 or greater. supportive care for cocaine withdrawal. Q5 min checks due to statements of SI/HI. 09/13: dismissive. provocative statements about his safety. agrees to bupe 8 BID. DC COWS and PRN bupe. otherwise continue current mgmt. 09/14/-dep/anxious with si and ah, better with opiate withdrawl on sub-CTP 09/15 concerning lcarisse not improving since admission ? worse, inc sertraline, consider lithium, or ECT : Keeping to self. Pt reports feeling better ; pt stated, I'm not having much anxiety or depression anymore. I am going to try to call my family in [place] to see if I can stay with them . Pt denies SI/HI/VH/AH 09/17: Pt signed 3 day notice yesterday; it is up on 09/20/23. Pt reports feeling good ; pt stated, I spoke to my family in [place]. They are going to buy me a plane ticket and I'm going to stay with my grandmother. Pt denies SI/HI/VH/AH. Continue current tx plan. 09/18: Keeping to self. Pt reports feeling good ; pt stated, I feel ready to go. I'm going to get my stuff from my friends house then meet my cousin to bring me to the airport. I'm going to find a clinic and providers when I get to [place] Pt denies SI/HI/VH/AH. Patient educated on: diagnosis, medication risk/benefits, substance abuse and therapeutic strategies Informed Consent: understands Reason for continued inpatient stay Substantial Risk for: stable for discharge Time Spent With Patient Time: Total time managing care of this patient today _20___ minutes.
[2023-09-19 21:20] VITALS: BP 108/68; PULSE 63; RESP 16; TEMP 36.4; O2SAT 95
[2023-09-19 21:24] VITALS: BP 108/68
[2023-09-19] MEDS: Prazosin HCL 1 MG CAPSULE 3 MG PO (21:24)
[2023-09-19] MEDS: traZODone HCL 50 MG TABLET 150 MG PO (21:25)
[2023-09-19] MEDS: QUEtiapine Fumarate 300 MG TABLET PO (21:25)
[2023-09-20 07:00] VITALS: BMI 26.4
[2023-09-20 07:20] VITALS: PULSE 62; RESP 18; TEMP 36.4; O2SAT 95
[2023-09-20 08:00] VITALS: BP 103/62; PULSE 62; RESP 16; TEMP 36.4; O2SAT 95
[2023-09-20] MEDS: Buprenorphine HCL 8 MG TAB.SUBL SUBLINGUAL (08:37)
[2023-09-20] MEDS: Sertraline HCL 100 MG TABLET 200 MG PO (08:37)
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
[2023-09-20] MEDS: Naloxone HCl Nasal TAKE HOME 4 MG SPRAY 8 MG NOSTRILALT (09:47)
== END 2023-09-20 10:50 | disposition home or self-care (01) | DRG 753 ==
LOC: HO.ED 07:06 → HO.PADLT16 09-12 13:51
PROVIDERS: Psychiatry & Neurology Psychiatry; Admitting Provider Psychiatry & Neurology Psychiatry; Emergency Provider Internal Medicine; Visit Provider Psychiatry & Neurology Psychiatry
DX: F31.9 Bipolar disorder, unspecified (principal); R45.851 Suicidal ideations; Z91.148 Patient's other noncompliance with medication regimen for other reason; F11.20 Opioid dependence, uncomplicated; F17.210 Nicotine dependence, cigarettes, uncomplicated; F19.10 Other psychoactive substance abuse, uncomplicated; F14.90 Cocaine use, unspecified, uncomplicated; Z71.6 Tobacco abuse counseling; Z91.51 Personal history of suicidal behavior; Z59.02 Unsheltered homelessness; Z20.822 Contact with and (suspected) exposure to COVID-19; Z79.899 Other long term (current) drug therapy
CPT/HCPCS: 36415; 80053; 80307; 81001; 85025; 87633; 93005; 99285; J0571; S9485

== ENCOUNTER → 2023-09-11 10:37 | Outpatient (BNV) | payer OTHER, SELFPAY | PROVIDERS: Emergency Provider Internal Medicine; Visit Provider Internal Medicine Cardiovascular Disease | DX: R45.851 Suicidal ideations (principal); F19.10 Other psychoactive substance abuse, uncomplicated; F31.9 Bipolar disorder, unspecified | CPT/HCPCS: 93010 ==

== ENCOUNTER → 2023-09-12 13:32 | Outpatient (BNV) | payer OTHER, SELFPAY | PROVIDERS: Admitting Provider Psychiatry & Neurology Psychiatry; Emergency Provider Internal Medicine; Visit Provider Psychiatry & Neurology Psychiatry | DX: F19.10 Other psychoactive substance abuse, uncomplicated (principal); R45.851 Suicidal ideations | CPT/HCPCS: 99231; 99233 ==

== ENCOUNTER 2023-09-21 11:34 | Emergency (ER) | payer OTHER, SELFPAY ==
--- NOTE | 2023-09-21 | ECG_ITS ---
Test Reason : CHECK QTC INTERVAL Blood Pressure : / mmHG Vent. Rate : 076 BPM Atrial Rate : 076 BPM P-R Int : 138 ms QRS Dur : 094 ms QT Int : 388 ms P-R-T Axes : 043 053 059 degrees QTc Int : 436 ms Normal sinus rhythm Normal ECG When compared with ECG of 11-SEP-2023 10:37, No significant change was found Referred By: Generic ED Physician Electronically Signed By:ZHEN HERNANDEZ MD
[2023-09-21 11:39] VITALS: BP 123/77; PULSE 99; RESP 18; TEMP 36.6; O2SAT 96; BMI 28.0
--- NOTE | 2023-09-21 11:57 | ED_ITS ---
HPI - Psych General Chief Complaint: Psychiatric Symptoms Stated Complaint: Feeling unsafe Time Seen by Provider: 09/21/23 11:47 Source: patient Mode of arrival: ambulatory Limitations: no limitations History of Present Illness ED Provider: DOMINIQUE CARRENO Narrative: 42 yo male with PMH of substance abuse and bipolar who presents with c/o spending the night on the street now feels unsafe and has SI but no plan. MD complaint: suicidal ideation and feels depressed Onset (ago): day(s) (1) Duration: constant History of same: Yes Relieving factors: none Exacerbating factors: other Context: significant life stressor Associated psychiatric symptoms: depression Associated symptoms: denies other symptoms Treatments prior to arrival: none If self harm: admits thoughts of self harm Related Data Previous Rx's ?Medication ?Instructions ?Recorded buprenorphine HCl 8 mg sublingual 8 mg sublingual BID 3 days #6 tabs 09/19/23 tablet prazosin 1 mg capsule 3 mg PO BEDTIME 30 days #90 caps 09/19/23 quetiapine 300 mg tablet 300 mg PO BEDTIME 30 days #30 tabs 09/19/23 sertraline 200 mg capsule 200 mg PO DAILY 30 days #30 caps 09/19/23 trazodone 150 mg tablet 150 mg PO BEDTIME 30 days #30 tabs 09/19/23 Allergies Allergy/AdvReac Type Severity Reaction Status Date / Time naloxone Allergy Anaphylaxis Verified 09/21/23 11:43 Review of Systems Review of Systems: Constitutional : No Fever, No Chills ENT/Mouth : No Ear Pain, No Nasal Congestion, No sore throat Eyes: No Eye Pain, No Swelling, No Redness Cardiovascular : No Chest Pain, No SOB Respiratory : No Cough, No Sputum, No Dyspnea Gastrointestinal : No Nausea, No Vomiting, No Diarrhea, No Hematochezia, No Melena Genitourinary : No Dysuria, No Urinary Frequency, No Hematuria Musculoskeletal : No Myalgias Skin : No Skin Lesions, No rash Neuro : No Weakness, No Numbness, No Paresthesias, No Dizziness, No Headache Psych : positive Anxiety, positive Depression, positive SI no HI All other systems reviewed and are negative PMF Past Medical History Attestation statement: The following information was validated with the patient. Source: old records reviewed Medical History Bipolar disorder Polysubstance abuse Suicidal ideation Social History Social History Household Members: None Housing: Homeless Do you presently have visiting nurse or other home services: No Patient Tobacco Use Status: Current everyday Tobacco user Tobacco use type: Cigarette Cigarette Packs Per Day: 1 Cigarettes Per Day: 20.0 Years Smoked: 20 Second Hand Smoke Exposure: No Substance Use Type: Crack/Cocaine and Opiates service: No Sexual orientation: Straight/Heterosexual Physical Exam Vital Signs: Vital Signs: Last Vital Signs Temp 97.9 F 09/21/23 11:39 Pulse 99 09/21/23 11:39 Resp 18 09/21/23 11:39 BP 123/77 09/21/23 11:39 Pulse Ox 96 09/21/23 11:39 O2 Del Method Room Air 09/21/23 11:39 BMI result Body Mass Index 28.0 Appearance: Alert. Oriented X3. No acute distress. Eyes: Pupils equal, round and reactive to light. ENT: Pharynx normal. Neck: Normal inspection. Neck supple. CVS: Normal heart rate and rhythm. Pulses normal. Respiratory: No respiratory distress. Breath sounds normal. Abdomen: Soft and nontender. Skin: Skin warm and dry. Normal skin color. Normal skin turgor. Extremities: No lower extremity edema. No calf ttp Neuro: Oriented X 3. No motor deficit. No sensory deficit. CN2-12intact Medical Decision Making Medical Decision Making [facility] Narrative: 42 yo male with PMH of substance abuse and bipolar here with c/o SI in setting of poor housing situation no plan will obtain labs and refer to CARE team Differential Diagnosis Differential Diagnoses: The differential diagnosis associated with the presentation includes depresison, substance abuse Admission/Observation Consideration of admission/observation: Escalation of care including admission /observation considered physician observation started at 12pm pending CARE team Consult Healthcare Provider Management of the patient was discussed with: Behavioral Health Provider Lab Data [facility] Lab Attestation statement: I reviewed the patient's lab results. External Record Review External record reviewed: Inpatient record Social Determinants Patient?s care significantly limited by Social Determinants of Health including: Problems related to primary support group Discharge Plan Discharge Clinical Impression: Depression Patient Disposition: Still a Patient Prescriptions: No Action prazosin 1 mg Capsule 3 mg PO BEDTIME 30 Days Qty: 90 0RF Protocol: Hold for SBP< HOLD for SBP < : 90 sertraline 200 mg capsule 200 mg PO DAILY 30 Days Qty: 30 0RF buprenorphine HCl 8 mg Tablet, Sublingual 8 mg sublingual BID 3 Days Qty: 6 0RF quetiapine 300 mg tablet 300 mg PO BEDTIME 30 Days Qty: 30 0RF trazodone 150 mg tablet 150 mg PO BEDTIME 30 Days Qty: 30 0RF Print Language: Korean
[2023-09-21 12:06] VITALS: BP 123/77; PULSE 99; RESP 18; TEMP 36.6; O2SAT 96
--- NOTE | 2023-09-21 13:18 | PC.NURSE ---
PT self presented to [facility] on a voluntary basis with suicidal ideations, no plan. The patient was discharged from yesterday and was supposed to have family pick him up. The patient reports that family did not pick him up and instead he went to the streets and used heroin and cocaine last night/this morning. Patient is calm and cooperative with staff.
[2023-09-21 13:20] LABS: Appearance Urine Clear; Color Urine Yellow; Glucose Urine UA Negative (Negative); Leukocyte Esterase Urine Small (1+) (Negative); Nitrite Urine Negative (Negative); PH 5.5 (5.0-9.0); Specific Gravity - Urine 1.025 (1.005-1.025); UMIC TRIGGER UACC YES; Urine Blood Negative (Negative); Urine Ketones Negative (Negative); Urine Protein Trace mg/dL (Neg-Trace)
[2023-09-21 13:22] LABS: Bacteria Urine None Seen (None Seen); Hyaline Casts Urine 0-2 /LPF (0-2); RBC Urine 0-2 /HPF (0-2); Squamous Epithelial Cell Urine 0-2 /HPF (0-2); UACC Culture Trigger YES
[2023-09-21 13:32] LABS: Amphetamine Screen Urine Not Detected (Not Detect); Barbiturates, Urine Not Detected (Not Detect); Benzodiazepines Screen Urine Not Detected (Not Detect); Buprenorphine Scr Positive (Not Detect); Cannabinoid Screen Urine Not Detected (Not Detect); Cocaine Screen Urine POSITIVE (Not Detect); Fentanyl, urine POSITIVE (Not Detect); Methadone Screen, Urine Not Detected (Not Detect); Opiate Screen Urine POSITIVE (Not Detect); Oxycodone Screen Urine Not Detected (Not Detect); Phencyclidine Screen Urine Not Detected (Not Detect)
[2023-09-21] MEDS: Buprenorphine HCL 8 MG TAB.SUBL SUBLINGUAL ×2 (13:47→21:03)
[2023-09-21] MEDS: Sertraline HCL 100 MG TABLET 200 MG PO (13:47)
[2023-09-21 15:00] LABS: Alanine Aminotransferase 16 U/L (0-40); Albumin Level 3.9 g/dL (3.5-5.0); Alkaline Phosphatase 65 U/L (39-117); Anion Gap 12 (12-20); Aspartate Amino Transferase 31 U/L (5-37); Bilirubin Total 0.7 mg/dL (0.0-1.0); Blood Urea Nitrogen 13 mg/dL (9-16); Calcium 9.3 mg/dL (8.4-10.2); Carbon Dioxide 25 mmol/L (22-29); Chloride 105 mmol/L (96-108); Creatinine Clr Calc Pharmacy 94.2; Estimated Glomerular Filt Rate > 60; Ethanol < 10 mg/dL; Glucose Random 110 mg/dL (60-115); Potassium 4.1 mmol/L (3.3-5.1); Sodium 138 mmol/L (135-145); Total Protein 7.5 g/dL (6.5-8.0)
--- NOTE | 2023-09-21 19:07 | PC.NURSE ---
patient appears to remain at rest at present respirations are even and unlabored patient appears in no distress.
[2023-09-21 20:26] VITALS: BP 99/62; PULSE 76; RESP 17; TEMP 36.5; O2SAT 96
[2023-09-21] MEDS: traZODone HCL 50 MG TABLET 150 MG PO (21:02)
[2023-09-21] MEDS: QUEtiapine Fumarate 300 MG TABLET PO (21:02)
[2023-09-21] MEDS: Prazosin HCL 1 MG CAPSULE 3 MG PO (21:03)
--- NOTE | 2023-09-21 23:59 | MHC.EDTECH ---
T/w attempted to collect labs on Pt and as soon as needle went in to the vein, Pt stated to remove needle. Unable to obtain at this time. RN aware.
[2023-09-22 06:44] VITALS: RESP 17
--- NOTE | 2023-09-22 07:45 | PC.NURSE ---
Assumed care of patient at 0645, patient appears to be sleeping in bed, respirations are even and unlabored, no apparent distress noted. Continue plan of care for dual dx bedsearch
[2023-09-22] MEDS: Buprenorphine HCL 8 MG TAB.SUBL SUBLINGUAL (09:13)
[2023-09-22] MEDS: Sertraline HCL 100 MG TABLET 200 MG PO (09:13)
--- NOTE | 2023-09-22 12:06 | MHC.CARE ---
Patient accepted to [facility] Dual Diagnosis unit for 5:00 pm today, per intake no nurse to nurse necessary [address] [address] Tarango Provider, Dr. Raymond sullivan
[2023-09-22 14:00] VITALS: BP 102/60; PULSE 70; RESP 18; TEMP 36.8; O2SAT 97
[2023-09-22 16:53] VITALS: BP 108/74; PULSE 74; RESP 16; TEMP 36.9; O2SAT 99
== END 2023-09-22 16:55 ==
PROVIDERS: Emergency Provider Emergency Medicine
DX: F33.1 Major depressive disorder, recurrent, moderate (principal); R45.851 Suicidal ideations; R94.31 Abnormal electrocardiogram [ECG] [EKG]; Z79.899 Other long term (current) drug therapy
CPT/HCPCS: 36415; 80053; 80307; 81001; 87086; 93005; 99285; J0571; S9485

== ENCOUNTER → 2023-09-21 13:56 | Outpatient (BNV) | payer OTHER, SELFPAY | PROVIDERS: Emergency Provider Emergency Medicine; Visit Provider Internal Medicine Cardiovascular Disease | DX: F31.9 Bipolar disorder, unspecified (principal) | CPT/HCPCS: 93010 ==